=== PATIENT | female | born 1995 | race Two or more races ===

== ENCOUNTER → 2019-07-29 | Outpatient (REF) | payer MEDICAID | LOC: M PLALAB 15:01 | PROVIDERS: ATTEND Advanced Practice Midwife | DX: Z53.9 Procedure and treatment not carried out, unspecified reason (principal) ==

== ENCOUNTER 2019-09-10 15:31 | Emergency (ER) | payer MEDICAID ==
[~2019-09-10] VITALS: Ht 157.5 cm; Wt 52.3 kg
[2019-09-10] MEDS ORDERED: PRENMIS3 PO (15:46)
[2019-09-10 16:57] LABS: HEMATOCRIT 36.3 % (36.0-47.0); HEMOGLOBIN 12.1 g/dl (12.0-15.5); MEAN CORPUSCULAR HEMOGLOBIN 31.4 pg (27.0-33.0); MEAN CORPUSCULAR HGB CONC 33.3 g/dl (32.0-36.5); MEAN CORPUSCULAR VOLUME 94.3 fl (80.0-96.0); PLATELET COUNT, AUTOMATED 297 10^3/uL (150-450); RED BLOOD COUNT 3.85 10^6/uL (4.00-5.40); WHITE BLOOD COUNT 4.8 10^3/uL (4.0-10.0)
[2019-09-10 17:16] LABS: AMPHETAMINES LEVEL URINE POSITIVE (NEGATIVE); BARBITURATES URINE NEGATIVE (NEGATIVE); BENZODIAZEPINES URINE NEGATIVE (NEGATIVE); CANNABINOIDS URINE NEGATIVE (NEGATIVE); COCAINE METABOLITE URINE NEGATIVE (NEGATIVE); METHADONE URINE NEGATIVE (NEGATIVE); OPIATES URINE NEGATIVE (NEGATIVE); PHENCYCLIDINE URINE NEGATIVE (NEGATIVE)
[2019-09-10 17:35] LABS: ALBUMIN 3.1 GM/DL (3.2-5.2); ALT/SGPT 108 U/L (12-78); BILIRUBIN,DIRECT 0.2 MG/DL (0.0-0.2); BILIRUBIN,TOTAL 0.7 MG/DL (0.2-1.0); BLOOD UREA NITROGEN 7 MG/DL (7-18); CALCIUM LEVEL 8.4 MG/DL (8.5-10.1); CARBON DIOXIDE LEVEL 26 MEQ/L (21-32); CHLORIDE LEVEL 108 MEQ/L (98-107); CREATININE FOR GFR 0.44 MG/DL (0.55-1.30); GLOMERULAR FILTRATION RATE > 60.0 (>60); GLUCOSE, FASTING 72 MG/DL (70-100); POTASSIUM SERUM 3.8 MEQ/L (3.5-5.1); SALICYLATE LEVEL < 1.7 MG/DL (5.0-30.0); SODIUM LEVEL 140 MEQ/L (136-145); THYROID STIMULATING HORMONE 0.647 uIU/ML (0.358-3.740)
[2019-09-10 17:36] LABS: ACETAMINOPHEN LEVEL < 2.0 UG/ML (10.0-30.0); ETHYL ALCOHOL (ETHANOL) < 0.003 % (0.000-0.010)
[2019-09-10 17:52] VITALS: BP 112/73
== END 2019-09-10 17:54 | disposition home or self-care (01) ==
LOC: M ED 15:31
DX: O99.340 Other mental disorders complicating pregnancy, unspecified trimester (principal); F33.9 Major depressive disorder, recurrent, unspecified; F43.20 Adjustment disorder, unspecified; Z3A.00 Weeks of gestation of pregnancy not specified; O99.320 Drug use complicating pregnancy, unspecified trimester; F15.10 Other stimulant abuse, uncomplicated; O99.330 Smoking (tobacco) complicating pregnancy, unspecified trimester; F17.210 Nicotine dependence, cigarettes, uncomplicated
CPT/HCPCS: 36415; 80048; 80076; 80307; 84443; 85027; 99284; G0480

== ENCOUNTER → 2019-12-03 | Emergency (ER) | payer MEDICAID ==
[~2019-12-03] MED LIST: ACET-683 PO; DOCU100C16 PO; IBUP80TA PO; ONDANSETRON 4 MG ORAL DISINTEGRATING TAB As Ordered ONE; ONDANSETRON 4 MG ORAL DISINTEGRATING TAB ONE; PERCOCET PO; PREN29CH2 PO; PRENMIS3 PO
== END | disposition home or self-care (01) ==
LOC: MERGE 19:24 → M ED 19:24
DX: R11.0 Nausea (principal); F15.10 Other stimulant abuse, uncomplicated; F33.9 Major depressive disorder, recurrent, unspecified; F41.1 Generalized anxiety disorder; Z3A.08 8 weeks gestation of pregnancy; Z91.030 Bee allergy status; Z87.891 Personal history of nicotine dependence
CPT/HCPCS: 99282; Q0162

== ENCOUNTER 2019-12-25 00:22 | Outpatient (CLI) | payer MEDICAID ==
[2019-12-25] VITALS (12 sets, daily range): BP systolic 123–153; BP diastolic 75–104
[~2019-12-25 00:22] MED LIST changes: -ACET-683 PO; -DOCU100C16 PO; -IBUP80TA PO; -ONDANSETRON 4 MG ORAL DISINTEGRATING TAB As Ordered ONE; -ONDANSETRON 4 MG ORAL DISINTEGRATING TAB ONE; -PERCOCET PO
[2019-12-25 02:43] LABS: BASO % 0.3 % (0.0-1.0); EOS # 0.1 10^3/uL (0.0-0.5); EOS % 2.1 % (0.0-3.0); HEMATOCRIT 31.2 % (36.0-47.0); HEMOGLOBIN 10.4 g/dl (12.0-15.5); LYMPH # 2.2 10^3/uL (1.5-5.0); LYMPH % 33.7 % (24.0-44.0); MEAN CORPUSCULAR HEMOGLOBIN 30.2 pg (27.0-33.0); MEAN CORPUSCULAR HGB CONC 33.3 g/dl (32.0-36.5); MEAN CORPUSCULAR VOLUME 90.7 fl (80.0-96.0); MONO # 0.4 10^3/uL (0.0-0.8); MONO % 5.9 % (0.0-5.0); NEUTROPHILS # 3.8 10^3/uL (1.5-8.5); NEUTROPHILS % 57.7 % (36.0-66.0); PLATELET COUNT, AUTOMATED 176 10^3/uL (150-450); RED BLOOD COUNT 3.44 10^6/uL (4.00-5.40); WHITE BLOOD COUNT 6.6 10^3/uL (4.0-10.0)
[2019-12-25 03:10] LABS: ALT/SGPT 14 U/L (12-78); BILIRUBIN,TOTAL 0.2 MG/DL (0.2-1.0); CREATININE FOR GFR 0.65 MG/DL (0.55-1.30); GLOMERULAR FILTRATION RATE > 60.0 (>60); LDH LACTATE DEHYDROGENASE 223 U/L (84-246); URIC ACID 7.1 MG/DL (2.6-6.0)
[2019-12-25 08:15] LABS: CREATININE,RANDOM URINE 62.4 MG/DL; TOTAL PROTEIN,RANDOM URINE 827.1 MG/DL (0.0-12.0)
--- NOTE | 2019-12-26 01:39 | IPNPDOC ---
Obstetrical Progress Note Date of Service Dec 25, 2019 Subjective 24-year-old 8, para 1 presents at 34 weeks 2 days estimated gestational age following a fall earlier yesterday afternoon. She reports some discomfort in her right knee where she fell plus intravenous edema. She presents as unregistered patient of [facility]. Upon her evaluation, she is noted to have elevated blood pressures. She reports no complications during this . Reports starting detox program on Thursday O: intermitting severely elevated BP, mostly mildly elevated Reactive nonstress test, category 1 Gen: well appearing abd: soft, gravid, nttp TAUS: 12/09 BPP, EFW 1841gm, 49%, ELLIOTT 13cm Labs: protein/creat 13. A: 24-year-old 8, para 1 at 34 weeks and 2 days estimated gestational age status post fall with reassuring status Preeclampsia-upon review of patient's medical record Mckean she had previously been diagnosed with preeclampsia. Reviewed her diagnoses, instructed on plan of care. She will be started in substance abuse treatment program Thursday labor. Pre-eclampsia precautions. Patient is also instructed on kick count instructions Objective Vital Signs Date Time Temp Pulse Resp B/P (MAP) Pulse Ox O2 Delivery O2 Flow Rate FiO2 12/25/19 05:27 62 16 132/75 (94) 12/25/19 00:37 98.0 Assessment Heart Rate Tracing: Category I Tocometer Contractions: ARGELIA Randolph MD. Dec 26, 2019 01:40
[2019-12-26 12:44] LABS: HIV 1&2 SCREEN CENTAUR NEGATIVE (NEGATIVE)
[2019-12-26 16:01] LABS: HEPATITIS C VIRUS ABY INDEX > 11.0 INDEX (<0.8)
== END 2019-12-25 11:07 | disposition home or self-care (01) ==
LOC: M LDO 00:22
PROVIDERS: ATTEND Obstetrics & Gynecology
DX: O99.89 Other specified diseases and conditions complicating pregnancy, childbirth and the puerperium (principal); O99.323 Drug use complicating pregnancy, third trimester; O14.93 Unspecified pre-eclampsia, third trimester; W19.XXXA Unspecified fall, initial encounter; F19.10 Other psychoactive substance abuse, uncomplicated; Z3A.34 34 weeks gestation of pregnancy

== ENCOUNTER 2019-12-25 22:15 | Outpatient (CLI) | payer MEDICAID ==
[~2019-12-25] VITALS: Ht 157.5 cm; Wt 62.6 kg
[2019-12-25 22:39] VITALS: BP 165/108
[2019-12-25 22:45] VITALS: BP 148/101
[2019-12-25 22:57] VITALS: BP 159/107
[2019-12-25 23:23] VITALS: BP 158/100
[2019-12-26] VITALS (19 sets, daily range): BP systolic 122–153; BP diastolic 75–101
[2019-12-26] MEDS ORDERED: BETAMETHASONE SOLUSPAN 6MG/ML 5ML VIAL (J0702 PER 3MG) IM SCH
[2019-12-26 00:45] LABS: HEMATOCRIT 33.4 % (36.0-47.0); MEAN CORPUSCULAR HEMOGLOBIN 30.3 pg (27.0-33.0); MEAN CORPUSCULAR HGB CONC 32.9 g/dl (32.0-36.5); PLATELET COUNT, AUTOMATED 168 10^3/uL (150-450); RED BLOOD COUNT 3.63 10^6/uL (4.00-5.40); WHITE BLOOD COUNT 7.7 10^3/uL (4.0-10.0)
[2019-12-26 01:34] LABS: ALT/SGPT 11 U/L (12-78); BILIRUBIN,TOTAL 0.3 MG/DL (0.2-1.0); CREATININE FOR GFR 0.72 MG/DL (0.55-1.30); GLOMERULAR FILTRATION RATE > 60.0 (>60); LDH LACTATE DEHYDROGENASE 221 U/L (84-246); URIC ACID 7.3 MG/DL (2.6-6.0)
--- NOTE | 2019-12-26 08:32 | IPNPDOC ---
Text Note Date of Service The patient was seen on 12/26/19. NOTE Subjective: Patient is a 24-year-old female who is a . She initiated care in her second trimester with [facility]. She reports she has had care from [facility] but only records available are from [facility]. She has had sporadic care during her with most of her care being hospital visits. Her has been complicated by a history of genital herpes, gonorrhea during , a history of a section, drug abuse-mostly methamphetamines, and minimal care. She presents to L&D accompanied by the police. The police were called to her mother's residence after her mother reported that the patient was threatening to hurt herself and her unborn baby. Her mother also reported that she was hitting herself and her abdomen. When the police arrived they found out that she had an open warrant and arrested her. Tisha reported that she didn't feel well (dizziness) and was brought into L&D with a police escort. She denies any preeclamptic symptoms. Labs were just completed when she was here on 12/25/19 after she came in for a fall. She was cleared by OB yesterday with stable preeclampsia. The police left her this morning with an appearance ticket. After they left she wanted to leave AMA. She denied suicidal ideation and denied hitting herself. Objective: A+Ox3. Respiratory rate is regular with no use of accessory muscles. CTA bilaterally. Cardiac: regular rate with no murmurs, rubs, or gallops. Abdomen: Gravid but small for gestation. No tenderness with palpation. Palpates soft. Extremities: no edema. FHR 130, moderate variability, positive accelerations, no decelerations. Contractions: none. Assessment: IUP at 34+ weeks gestation, preeclampsia, drug addiction, suicidal thought and harming self, Category I FHR tracing Plan: Continuous monitoring. Regular diet. Betamethasone injection that was given at 0030 12/26/19. Urine drug screen ordered and chlamydia and gonorrhea was ordered due to positive history during this . Social service consult ordered due to claim that she has no where to live. Consult for psych due to threats of suicide and patient harming herself and threatening to hurt baby per her mother. After having a social service consult her mother said that she will be able to stay with her. Her plan per patient and her mother is to do inpatient treatment with [facility] in [place]. Patient left AMA after the police left. Dr. Anna was notified. Given that she hasn't been cleared by Psychiatrist she was advised that if she left before being cleared that she would be picked up by the police again since she had suicidal threats and was physically harming herself and her baby. Patient left and signed AMA. Plan should be set up for patient to have a repeat section at 37 weeks gestation due to preeclampsia. She only received 1 dose of betamethasone. VS,Fishbone, I+O VS, Fishbone, I+O Laboratory Tests 12/26/19 00:35 Vital Signs Date Time Temp Pulse Resp B/P (MAP) Pulse Ox O2 Delivery O2 Flow Rate FiO2 12/26/19 06:32 60 148/93 (111) 12/26/19 06:02 98.0 18 12/25/19 22:39 98 Room Air YOLANDA MAR CNM Dec 26, 2019 08:32
--- NOTE | 2019-12-26 10:28 | MHCRPDOC ---
[facility] Consultation Consultation patient eloped before consultation, diamond picker order called to return patient to er for psychiatric assessment. Vital Signs Vital Signs Date Time Temp Pulse Resp B/P (MAP) Pulse Ox O2 Delivery O2 Flow Rate FiO2 12/26/19 08:02 65 16 153/92 (112) 12/26/19 06:02 98.0 12/25/19 22:39 98 Room Air Laboratory Data 24H Labs Laboratory Tests 2 12/26/19 00:35: Nucleated Red Blood Cells % (auto) 0.0, Glomerular Filtration Rate > 60.0, Uric Acid 7.3H, Total Bilirubin 0.3, Aspartate Amino Transf (AST/SGOT) 23, Alanine Aminotransferase (ALT/SGPT) 11L, Lactate Dehydrogenase 221 Home Medications Current Medications Current Medications Medications (Trade) Dose Ordered Sig/Selena Route PRN Reason Start Time Stop Time Status Last Admin Dose Admin Betamethasone Acet/Betameth SodPhos (Celestone-Soluspan) 12 mg Q24H IM 12/26/19 00:00 12/27/19 00:01 12/26/19 00:30 Home Med (Med Rec Complete!) ASDIRECTED XX 12/25/19 23:00 12/25/19 23:01 DC Scheduled 95/Iron Fum/Folic/Dha ( + Dha Combo Pack) 1 Each Combo..pkg, 1 TAB PO DAILY, (Reported) Allergies Coded Allergies: TAPE (Verified Allergy, Unknown, 12/25/19) bee pollen (Verified Allergy, Unknown, 12/25/19) PETER DEJESUS DO Dec 26, 2019 10:28
[2019-12-26 12:06] LABS: CHLAMYDIA DNA AMPLIFICATION NEGATIVE (NEGATIVE); GC DNA AMPLIFICATION NEGATIVE (NEGATIVE)
[2019-12-26 19:03] LABS: BARBITURATES URINE REFLEX NEGATIVE (NEGATIVE); BENZODIAZEPINES URINE REFLEX NEGATIVE (NEGATIVE); CANNABINOIDS URINE REFLEX NEGATIVE (NEGATIVE); COCAINE METABOLITE URINE REFLE NEGATIVE (NEGATIVE); METHADONE URINE REFLEX NEGATIVE (NEGATIVE); OPIATES URINE REFLEX NEGATIVE (NEGATIVE); PHENCYCLIDINE URINE REFLEX NEGATIVE (NEGATIVE)
[2019-12-26 19:16] LABS: AMPHETAMINES URINE REFLEX PENDING CONFIRMATION (NEGATIVE)
[2019-12-29 09:11] LABS: Amphetamine Negative (Cutoff=500); Amphetamines Positive (.); GC Methamphetam 893 ng/mL (Cutoff=500); Methamphetamine Positive (.)
== END 2019-12-26 10:35 | disposition left against medical advice (07) ==
LOC: M LDO 22:15
PROVIDERS: ATTEND Obstetrics & Gynecology
DX: O99.323 Drug use complicating pregnancy, third trimester (principal); O14.93 Unspecified pre-eclampsia, third trimester; O98.213 Gonorrhea complicating pregnancy, third trimester; F19.10 Other psychoactive substance abuse, uncomplicated; X83.8XXA Intentional self-harm by other specified means, initial encounter; Z3A.34 34 weeks gestation of pregnancy
CPT/HCPCS: 59025; 80307; 82247; 82565; 83615; 84450; 84460; 84550; 85027; 87491; 87591; 96372; G0480; J0702

== ENCOUNTER 2019-12-26 12:53 | Emergency (ER) | payer MEDICAID ==
[~2019-12-26] VITALS: Ht 157.5 cm; Wt 65.5 kg
[2019-12-26 16:17] VITALS: BP 135/67
== END 2019-12-26 19:40 | disposition home or self-care (01) ==
LOC: M ED 12:53 → MERGE 12:53 → M ED 19:40
DX: O99.342 Other mental disorders complicating pregnancy, second trimester (principal); O99.332 Smoking (tobacco) complicating pregnancy, second trimester; O99.322 Drug use complicating pregnancy, second trimester; Z79.899 Other long term (current) drug therapy; Z91.89 Other specified personal risk factors, not elsewhere classified; Z91.030 Bee allergy status

== ENCOUNTER 2020-01-12 05:21 | Inpatient (IN) | payer MEDICAID ==
[~2020-01-12] VITALS: Ht 157.5 cm; Wt 69.1 kg
[2020-01-12] VITALS (20 sets, daily range): BP systolic 122–180; BP diastolic 84–115
[2020-01-12] MEDS: LR 1,000 ML IV SCH ×2 (03:30→13:39)
[2020-01-12] MEDS ORDERED: LR 1,000 ML IV SCH ×3 (06:14→10:00)
[2020-01-12] MEDS ORDERED: LACTATED RINGER'S 1000 ML IV STA (06:14)
[2020-01-12] MEDS ORDERED: AZITHROMYCIN INJ 500 MG, VIAL MATE ADAPTER 1 EACH in D5W 250 ML IV ONE (06:15)
[2020-01-12] MEDS ORDERED: BICITRA 30ML SOLN UDC PO ONE (06:15)
[2020-01-12] MEDS ORDERED: ceFAZolin SOD 2 GM in IV 1 EA IV ONE (06:15)
[2020-01-12 06:56] LABS: TOTAL PROTEIN,RANDOM URINE 1433.7 MG/DL (0.0-12.0)
[2020-01-12 07:06] LABS: HEMATOCRIT 38.7 % (36.0-47.0); HEMOGLOBIN 12.7 g/dl (12.0-15.5); MEAN CORPUSCULAR HGB CONC 32.8 g/dl (32.0-36.5); MEAN CORPUSCULAR VOLUME 91.5 fl (80.0-96.0); PLATELET COUNT, AUTOMATED 195 10^3/uL (150-450); RED BLOOD COUNT 4.23 10^6/uL (4.00-5.40); WHITE BLOOD COUNT 7.8 10^3/uL (4.0-10.0)
[2020-01-12] MEDS ORDERED: ePHEDrine SULFATE 25 MG/5 ML(5MG/ML) SYRINGE As Ordered ONE (07:27)
[2020-01-12] MEDS ORDERED: PHENYLephrine HCL 500 MCG/5 ML (100MCG/ML) SYRINGE (J2370) As Ordered ONE (07:27)
[2020-01-12] MEDS ORDERED: MORPHINE PRES-FREE INJ 10 MG/10 ML VIAL (J2274) As Ordered ONE (07:27)
[2020-01-12] MEDS ORDERED: OXYTOCIN 30 UNITS IN 0.9% NaCl 500ML IV BAG (J2590) As Ordered ONE ×2 (07:30→09:32)
[2020-01-12 07:49] LABS: ALT/SGPT 26 U/L (12-78); BILIRUBIN,TOTAL 0.2 MG/DL (0.2-1.0); CREATININE FOR GFR 0.88 MG/DL (0.55-1.30); GLOMERULAR FILTRATION RATE > 60.0 (>60); LDH LACTATE DEHYDROGENASE 310 U/L (84-246); URIC ACID 7.6 MG/DL (2.6-6.0)
[2020-01-12] MEDS ORDERED: diphenhydrAMINE 50MG/ML VIAL (J1200) IV PRN (07:50)
[2020-01-12] MEDS ORDERED: METOCLOPRAMIDE INJ 10MG/2ML VIAL (J2765 PER 1) IV PRN ×2 (07:50→10:00)
[2020-01-12] MEDS ORDERED: NALOXONE INJ 0.4MG/1ML VIAL (J2310 PER 1MG) IV PRN ×2 (07:50)
[2020-01-12] MEDS ORDERED: ONDANSETRON 4MG/2ML VIAL IV PRN ×2 (07:50→10:00)
[2020-01-12] MEDS ORDERED: NALBUPHINE HCL 10 MG/ML AMP (J2300) IV PRN (07:50)
[2020-01-12] MEDS ORDERED: KETOROLAC 60MG 2ML VIAL As Ordered ONE (08:29)
[2020-01-12] MEDS ORDERED: ONDANSETRON 4MG/2ML VIAL As Ordered ONE ×2 (08:29→10:44)
[2020-01-12] MEDS ORDERED: PRENATAL VITAMINS CHEWABLE TABLET PO SCH (09:00)
[2020-01-12] MEDS ORDERED: OXYTOCIN DRIP 30 UNITS in IV 1 EA IV SCH (09:22)
[2020-01-12] MEDS ORDERED: MEASLES,MUMPS,RUBELLA VACCINE INJ (MMR-II) (90707) SC SCH (09:30)
[2020-01-12] MEDS ORDERED: RHOGAM 300 MCG (1500 IU) INJ (J2790) IM SCH (09:30)
[2020-01-12] MEDS ORDERED: PROMETHAZINE 25 MG TAB PO PRN (09:30)
[2020-01-12] MEDS ORDERED: ONDANSETRON 4 MG TAB PO PRN (09:30)
[2020-01-12] MEDS ORDERED: ACETAMINOPHEN 500 MG TAB PO PRN (09:30)
[2020-01-12] MEDS ORDERED: LABETALOL 100MG/20ML VIAL IV ONE (09:45)
[2020-01-12] MEDS ORDERED: MAG Sulf (L&D) 4 GM/100 ML 4 GM in IV 1 EA IV ONE (09:45)
[2020-01-12] MEDS ORDERED: CALCIUM GLUCONATE 1,000 MG in D5W MINI-BAG PLUS 100 ML IV PRN (09:45)
[2020-01-12] MEDS ORDERED: MAGNESIUM *L&D* 4GM/100ML BAG (40MG/ML) As Ordered ONE (09:54)
[2020-01-12] MEDS ORDERED: MAGNESIUM SULFATE 4% INJ 20GM/500ML (40MG/ML) As Ordered ONE (09:54)
[2020-01-12] MEDS ORDERED: PERCOCET 5MG/325MG TAB PO PRN (10:00)
[2020-01-12] MEDS ORDERED: LABETALOL 100MG/20ML VIAL IV SCH (10:00)
[2020-01-12] MEDS ORDERED: fentaNYL 100 MCG/2 ML INJECTION (J3010) IV PRN (10:00)
[2020-01-12] MEDS ORDERED: LABETALOL 100MG/20ML VIAL As Ordered ONE (10:02)
[2020-01-12] MEDS: MAG Sulf (OBGYN) 20GM/500ML 20,000 MG in IV 1 EA IV SCH ×2 (10:06→20:05)
[2020-01-12] MEDS: PRENATAL VITAMINS CHEWABLE TABLET PO SCH (11:15)
[2020-01-12 13:22] LABS: HEMATOCRIT 36.6 % (36.0-47.0); HEMOGLOBIN 12.3 g/dl (12.0-15.5); MEAN CORPUSCULAR HEMOGLOBIN 30.5 pg (27.0-33.0); MEAN CORPUSCULAR HGB CONC 33.6 g/dl (32.0-36.5); MEAN CORPUSCULAR VOLUME 90.8 fl (80.0-96.0); PLATELET COUNT, AUTOMATED 202 10^3/uL (150-450); RED BLOOD COUNT 4.03 10^6/uL (4.00-5.40); WHITE BLOOD COUNT 10.8 10^3/uL (4.0-10.0)
[2020-01-12 13:56] LABS: ALT/SGPT 21 U/L (12-78); BILIRUBIN,TOTAL 0.2 MG/DL (0.2-1.0); GLOMERULAR FILTRATION RATE > 60.0 (>60); LDH LACTATE DEHYDROGENASE 318 U/L (84-246); URIC ACID 7.1 MG/DL (2.6-6.0)
[2020-01-12 13:57] LABS: MAGNESIUM LEVEL 6.6 MG/DL (1.8-2.4)
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
[2020-01-12] MEDS: KETOROLAC 30 MG/ML 1ML VIAL IV SCH ×2 (15:00→21:00)
[2020-01-12 15:14] LABS: AMPHETAMINES URINE REFLEX NEGATIVE (NEGATIVE); BARBITURATES URINE REFLEX NEGATIVE (NEGATIVE); BENZODIAZEPINES URINE REFLEX NEGATIVE (NEGATIVE); CANNABINOIDS URINE REFLEX NEGATIVE (NEGATIVE); COCAINE METABOLITE URINE REFLE NEGATIVE (NEGATIVE); METHADONE URINE REFLEX NEGATIVE (NEGATIVE); OPIATES URINE REFLEX NEGATIVE (NEGATIVE); PHENCYCLIDINE URINE REFLEX NEGATIVE (NEGATIVE)
[2020-01-12] MEDS: DOCUSATE SODIUM 100 MG CAP PO SCH (21:55)
[2020-01-13] VITALS (15 sets, daily range): BP systolic 106–140; BP diastolic 68–95
[2020-01-13] MEDS: PERCOCET 5MG/325MG TAB PO PRN ×4 (02:43→19:58)
[2020-01-13] MEDS: KETOROLAC 30 MG/ML 1ML VIAL IV SCH (03:00)
[2020-01-13 06:20] LABS: HEMATOCRIT 33.5 % (36.0-47.0); MEAN CORPUSCULAR HEMOGLOBIN 30.2 pg (27.0-33.0); MEAN CORPUSCULAR HGB CONC 32.8 g/dl (32.0-36.5); PLATELET COUNT, AUTOMATED 253 10^3/uL (150-450); RED BLOOD COUNT 3.64 10^6/uL (4.00-5.40); WHITE BLOOD COUNT 7.9 10^3/uL (4.0-10.0)
[2020-01-13 06:38] LABS: ALT/SGPT 19 U/L (12-78); BILIRUBIN,TOTAL 0.1 MG/DL (0.2-1.0); CREATININE FOR GFR 0.67 MG/DL (0.55-1.30); GLOMERULAR FILTRATION RATE > 60.0 (>60); LDH LACTATE DEHYDROGENASE 292 U/L (84-246); URIC ACID 6.4 MG/DL (2.6-6.0)
[2020-01-13] MEDS ORDERED: SLF 3 ML SYR IV PRN (09:15)
[2020-01-13] MEDS: DOCUSATE SODIUM 100 MG CAP PO SCH ×3 (09:28→19:46)
[2020-01-13] MEDS: PRENATAL VITAMINS CHEWABLE TABLET PO SCH ×2 (09:28→09:30)
[2020-01-13] MEDS: SLF 3 ML SYR IV SCH ×2 (09:29→21:19)
[2020-01-13] MEDS: IBUPROFEN 800 MG TAB PO SCH ×2 (10:55→19:46)
[2020-01-14 02:00] VITALS: BP 142/88
[2020-01-14] MEDS: IBUPROFEN 800 MG TAB PO SCH ×3 (03:03→19:51)
[2020-01-14 06:00] VITALS: BP 140/90
[2020-01-14] MEDS: SLF 3 ML SYR IV SCH (06:00)
[2020-01-14] MEDS: PRENATAL VITAMINS CHEWABLE TABLET PO SCH (09:10)
[2020-01-14] MEDS: DOCUSATE SODIUM 100 MG CAP PO SCH ×2 (09:10→21:48)
[2020-01-14] MEDS: PERCOCET 5MG/325MG TAB PO PRN ×3 (09:12→21:48)
[2020-01-14 10:00] VITALS: BP 131/91
[2020-01-14 14:00] VITALS: BP 134/92
--- NOTE | 2020-01-14 14:14 | IPNPDOC ---
Progress Note Date of Service: Jan 14, 2020 Day#: 2 Progress Note SUBJECT: Doing well without complaints. Ambulating, voiding and pain is well-c ontrolled. Reports minimal lochia. OBJECTIVE: VITAL SIGNS: Within normal limits, afebrile. Alert and oriented times three. Abdomen: Fundus firm at U-2. Soft, NTTP. Incision: dressed Ext: neg calf tenderness. ASSESSMENT: /postoperative day #2 status post delivery. Recovering in stable condition. PLAN: 1. Continue routine /postoperative care 2. Discharge plans for tomorrow VS, I&O, 24H, Fishbone Vital Signs/I&O Vital Signs Date Time Temp Pulse Resp B/P (MAP) Pulse Ox O2 Delivery O2 Flow Rate FiO2 01/14/20 10:00 98.5 86 16 131/91 (104) 100 Room Air 01/12/20 11:04 95 I&O- Last 24 Hours up to 6 AM 01/14/20 05:59 Intake Total 1383 ml Output Total 2500 ml Balance -1117 ml Laboratory Data Microbiology Microbiology 01/12/20 Group B Streptococcus Screen (OSBALDO) - Final, Complete ARGELIA PAYNE MD. Jan 14, 2020 14:14
[2020-01-14] MEDS: FLEET ENEMA PR PRN (16:29)
[2020-01-14] MEDS: MOM 30ML SUSPENSION UDC PO PRN (17:18)
[2020-01-14 18:00] VITALS: BP 155/96
[2020-01-14 22:00] VITALS: BP 152/100
[2020-01-15] MEDS: MOM 30ML SUSPENSION UDC PO PRN (00:50)
[2020-01-15 02:00] VITALS: BP 142/88
[2020-01-15] MEDS: PERCOCET 5MG/325MG TAB PO PRN (03:24)
[2020-01-15] MEDS: IBUPROFEN 800 MG TAB PO SCH ×2 (03:50→11:02)
[2020-01-15] MEDS ORDERED: IBUP80TA PO (05:48)
[2020-01-15] MEDS ORDERED: ACET-683 PO (05:48)
[2020-01-15] MEDS ORDERED: DOCU100C16 PO (05:48)
[2020-01-15] MEDS ORDERED: PERCOCET PO (05:50)
[2020-01-15 06:00] VITALS: BP 119/71
[2020-01-15] MEDS: DOCUSATE SODIUM 100 MG CAP PO SCH (09:14)
[2020-01-15] MEDS: PRENATAL VITAMINS CHEWABLE TABLET PO SCH (09:14)
[2020-01-15] MEDS: FLEET ENEMA PR PRN (11:30)
--- NOTE | 2020-01-30 10:40 | RO ---
DATE OF OPERATION: 01/12/2020 PREOPERATIVE DIAGNOSES: 1. 36 and 6/7 weeks gestation. 2. Preeclampsia with severe features. 3. Active labor. 4. History of prior low transverse section, declining trial of labor. POSTOPERATIVE DIAGNOSES: 1. 36 and 6/7 weeks gestation. 2. Preeclampsia with severe features. 3. Active labor. 4. History of prior low transverse section, declining trial of labor. 5. growth restriction/small for gestational age baby. PROCEDURE PERFORMED: Repeat low-transverse section. SURGEON: Migel Robertson DO ALIGNMENT MECHANIC: Erica Bowens, (essential role in tissue retraction and surgical site exposure, essential role in all aspects of the delivery). ANESTHESIA: Spinal with Duramorph. SPECIMENS SENT TO PATHOLOGY: Placenta. ESTIMATED BLOOD LOSS: 500 mL. FLUIDS REPLACED: 1500 mL lactated ringers. DRAINS: Howard catheter. URINE OUTPUT: 25 mL urine output of clear urine. COMPLICATIONS: None. DATA: Apgars 9 and 9, weight 1960 grams (4 pounds 5 ounces), female. INTRAOPERATIVE FINDINGS: Significant amount of intraabdominal peritoneal fluid consistent with third-spacing of fluid with preeclampsia. The baby was in cephalic presentation. Normal uterus and normal adnexa bilaterally. Minimal scar tissue within the intraperitoneal cavity. INDICATIONS: Severe preeclampsia, active labor, with a prior low transverse section. DESCRIPTION OF PROCEDURE: The patient was counseled and consented on the risks, benefits, indications, and alternatives of the procedure. Informed consent was obtained. She was taken to the operating room with an IV running and placed on the operating room table where spinal anesthesia was administered. Once spinal anesthesia was found to be adequate, she was then placed on the operating room table in the dorsal supine position with a leftward tilt. Sequential compression devices were placed on the lower extremities. Howard catheter was placed under sterile conditions. She was prepared and draped in a normal sterile fashion. Time-out was performed per protocol. Spinal anesthesia was again found to be adequate. A Pfannenstiel skin incision was made with a 10-blade. The #10-blade was used to dissect down to the level of the rectus sheath fascia. The rectus sheath fascia was incised at the midline and extended bilaterally with Holliday scissors. The muscle bellies were dissected off of the rectus sheath fascia. The intraperitoneal cavity was entered with blunt digital entry. The peritoneal opening was extended with manual stretch. A Mobius retractor was placed into the intraabdominal cavity. The vesicouterine peritoneum was dissected with Metzenbaum scissors to create a bladder flap. A low-transverse uterine incision was made with a 10-blade and extended with manual stretch. The amniotic sac was incidentally punctured and clear fluid was noted. The babys head delivered through the hysterotomy without any difficulty. The remainder of the body delivered with ease. The cord was doubly clamped and cut. The baby was handed off to awaiting care. The placenta was then removed manually. The uterus was cleared of all clot and debris. The hysterotomy was closed with 0-Vicryl in running lock fashion and reinforced with the second imbricating layer using 0- Vicryl. Excellent hemostasis of the hysterotomy was noted. There was just one small bleeding area that was reinforced with 3-0 Vicryl with a thyuva-fx-fulms stitch and excellent hemostasis was noted. The abdomen was then irrigated and cleared of all clot and debris. The Mobius retractor was removed. The hysterotomy was re-inspected and noted to be hemostatic. The peritoneum was then closed with 3-0 Vicryl in running fascia. The rectus abdominis muscles were reapproximated with 3-0 Vicryl. The rectus sheath fascia was reapproximated with 0-Vicryl in running fashion. The subcutaneous layer was reapproximated with 3-0 Vicryl. The skin was closed with 4-0 Monocryl in subcuticular fashion. Sponge, needle, and instrument counts were correct per protocol throughout the procedure. The patient tolerated the entire procedure very well. She was transferred to the PACU in good and stable condition. KADE
== END 2020-01-15 14:21 | disposition home or self-care (01) | DRG 540 ==
LOC: M LDO 05:21 → M LDI 06:21 → M OBS 01-13 10:15
PROVIDERS: ADMIT Advanced Practice Midwife; ATTEND Advanced Practice Midwife
PROC: 10D00Z1 Extraction of Products of Conception, Low, Open Approach (ICD-10-PCS; principal; 2020-01-12 07:00)
DX: O14.94 Unspecified pre-eclampsia, complicating childbirth (principal); O60.14X0 Preterm labor third trimester with preterm delivery third trimester, not applicable or unspecified; Z37.0 Single live birth; Z3A.36 36 weeks gestation of pregnancy; O34.211 Maternal care for low transverse scar from previous cesarean delivery; F17.200 Nicotine dependence, unspecified, uncomplicated; O99.334 Smoking (tobacco) complicating childbirth